=== PATIENT | male | born 1960 | race Caucasian/White ===

== ENCOUNTER 2016-03-30 16:08 | Emergency (ER) | payer SELFPAY ==
[2016-03-30] MEDS ORDERED: HYDROcodone/Acetaminophen 5/325 mg Tablet ONE (16:28)
[2016-03-30] MEDS ORDERED: AMOXicillin 250 MG CAP ONE (16:28)
--- NOTE | 2016-03-30 16:46 | ERRECORD ---
[facility] EMERGENCY RECORD HPI TOOTHACHE (16:24 WMEI) CHIEF COMPLAINT: Patient presents for evaluation of toothache. HISTORIAN: History provided by patient. LOCATION: Symptoms are localized. QUALITY: Pain is dull in nature, described as aching. TIME COURSE: Gradual onset of symptoms, 4, days priror to arrival. ASSOCIATED WITH: No associated chills, Associated with facial pain, No associated fever. EXACERBATED BY: Patient's condition exacerbated by chewing. RELIEVED BY: Patient's condition relieved by nothing. ROS (16:25 WMEI) CONSTITUTIONAL: Historian denies chills, denies fever. EYES: Historian denies eye pain, denies eye discharge. ENT: Historian denies otalgia, denies rhinorrhea. CARDIOVASCULAR: Historian denies chest pain, no radiation. RESPIRATORY: Historian denies cough, denies shortness of breath. GI: Historian denies abdominal pain, denies nausea, denies vomiting. MUSCULOSKELETAL: Historian denies injury, denies joint stiffness. SKIN: Historian denies skin changes, denies skin lesions. NEUROLOGIC: Historian denies confusion, denies lethargy. PSYCHIATRIC: Historian denies anxiety, denies depression. PAST MEDICAL HISTORY (16:16 LGIB) MEDICAL HISTORY: Past medical history includes history of hypertension, which has not been treated, Patient is noncompliant, Past medical history includes history of hyperlipidemia, high cholesterol, Past medical history includes neurological disease, transient ischemic attack, Past medical history includes cardiac history, myocardial infarction (2010) (2014). REVIEWED 03/30/16. MALE SURGICAL HISTORY: Patient has no surgical history. REVIEWED 03/30/16. PSYCHIATRIC HISTORY: No previous psychiatric history. REVIEWED 03/30/16. SOCIAL HISTORY: Lives at home, Patient currently uses tobacco, Patient smokes cigarettes, Patient smokes 1/2 PPD Patient has smoked for 30 years, Patient denies alcohol use, Patient denies drug use. REVIEWED 03/30/16. FAMILY HISTORY: Family istory is not significant, Family history includes coronary artery disease, sibling, Family history includes diabetes, mother. REVIEWED 03/30/16. KNOWN ALLERGIES No Known Drug Allergies CURRENT MEDICATIONS (16:15 LGIB) None &a-1R&a+25V*p+0X*d1536B*c202B*c15G*c2P*p-0X&a-25V&a+1R Name: Zion Forte : 1960 M56 MedRec: [id number] AcctNum: [id number] Prepared: Sat Mar 30, 2016 19:52 by Interface Page 1 of 3 pMD [facility] EMERGENCY RECORD VITAL SIGNS (16:24 LGIB) VITAL SIGNS: BP: 134/98, Pulse: 94, Resp: 18 (Non-Labored), Temp: 98.5 (Oral), Pain: 10, O2 sat: 94 on Room Air, Time: 03/30/2016 16:24. PHYSICAL EXAM (16:26 WMEI) CONSTITUTIONAL: Vital signs reviewed. HEAD: Head exam included findings of head atraumatic, normocephalic. EYES: Extraocular muscles intact, Conjunctiva normal, Sclera normal. ENT: Ear exam normal, Nose exam normal, Pharynx exam normal, teeth normal, multiple caries tender upper frontal. NECK: Neck exam included findings of normal range of motion, Trachea midline. RESPIRATORY CHEST: Breath sounds clear, Chest exam included findings of chest movement symmetrical. CARDIOVASCULAR: Cardiovascular exam included findings of heart rate regular rate and rhythm, Heart sounds normal. ABDOMEN MALE: Abdominal exam included findings of abdomen nontender, Liver normal, no distension. BACK: Back exam included findings of normal inspection, range of motion normal. UPPER EXTREMITY: Upper extremity exam included findings of inspection normal, Range of motion normal, Motor strength normal. LOWER EXTREMITY: Lower extremity exam included findings of inspection normal, Range of motion normal, Motor strength normal. NEURO: [place] coma scale 15, Neuro exam findings include patient oriented to person, place and time, Speech normal, Gait normal. SKIN: Skin exam included findings of skin warm, dry, and normal in color. LYMPHATIC: Lymphatic exam normal. PSYCHIATRIC: Psychiatric exam included findings of patient oriented to person place and time, Normal affect, Judgment normal, Insight normal. MEDICATION ADMINISTRATION SUMMARY Drug Name: Jayton, Dose Ordered: 5 mg, Route: Oral, Status: Given, Time: 16:30 03/30/2016, Drug Name: amoxicillin, Dose Ordered: 1000 mg, Route: Oral, Status: Given, Time: 16:30 03/30/2016, Detailed record available in Medication Service section. PROBLEM LIST No recorded problems DIAGNOSIS (16:28 WMEI) FINAL: PRIMARY: DENTAL CARIES UNSPECIFIED. PRESCRIPTION (16:24 WMEI) &a-1R&a+25V*p+0X*s8291W*c202B*c15G*c2P*p-0X&a-25V&a+1R Name: Zion Forte : 1960 M56 MedRec: [id number] AcctNum: [id number] Prepared: Sat Mar 30, 2016 19:52 by Interface Page 2 of 3 pMD [facility] EMERGENCY RECORD acetaminophen-codeine: TABLET : 300 mg-30 mg : ORAL : Quantity: 1 Unit: tab(s) Route: ORAL Schedule: every 4 hours prn Dispense: 20 Unit: tab(s) May substitute. Refills: No Refills . NOTES: No refills. Pen-Vee K: TABLET : 500 mg : ORAL : Quantity: 1 Unit: tab(s) Route: ORAL Schedule: every 6 hours Dispense: 40 Unit: tab(s) May substitute. Refills: No Refills . NOTES: ^s=No refills No refills. DISPOSITION PATIENT: Disposition Type: Discharge, Disposition: *Discharge Home. (16:28 WMEI) Patient left the department. (16:35 LGIB) Darnell: LGIB=TYSON Whiteside Lauren WMEI=DO Velarde William &a-1R&a+25V*p+0X*h4431H*c202B*c15G*c2P*p-0X&a-25V&a+1R Name: Zion Forte : 1960 M56 MedRec: [id number] AcctNum: [id number] Prepared: Sat Mar 30, 2016 19:52 by Interface Page 3 of 3 pMD MTDD
--- NOTE | 2016-03-30 16:49 | PICIS ---
[facility] EMERGENCY RECORD TRIAGE (16:14 LGIB) TRIAGE NOTES: PT WITH LIP SWELLINGFOR 2 DAYS. PATENT AIRWAY, NAD. (16:14 LGIB) PATIENT: NAME: Zion Forte, AGE: 56, GENDER: male, : Fri1960, TIME OF GREET: Sat Mar 30, 2016 16:08, PREFERRED LANGUAGE: Emirati, ETHNICITY: or , ECODE BILLING MAP: [facility], SSN: [id number], Zip Code: [address], KG WEIGHT: 117.93, PHONE: , , , PERSON ID: [id number], PAYMENT: [employer] Self Pay, PCP: DO CARTAGENA KRISTEL. (16:14 LGIB) COMPLAINT: LIP SWELLING. (16:14 LGIB) ADMISSION: URGENCY: 5 Fast Track, ADMISSION SOURCE: Home, TRANSPORT: CAR, BED: ER -03. (16:14 LGIB) PROVIDERS: TRIAGE NURSE: Sosa Whiteside RN. (16:14 LGIB) PREVIOUS VISIT ALLERGIES: No Known Drug Allergies. (16:14 LGIB) No Known Drug Allergies. (16:16 LGIB) KNOWN ALLERGIES No Known Drug Allergies CURRENT MEDICATIONS (16:15 LGIB) None VITAL SIGNS (16:24 LGIB) VITAL SIGNS: BP: 134/98, Pulse: 94, Resp: 18 (Non-Labored), Temp: 98.5 (Oral), Pain: 10, O2 sat: 94 on Room Air, Time: 03/30/2016 16:24. NURSING ASSESSMENT: SKIN (16:25 LGIB) CONSTITUTIONAL: Complex assessment performed, Patient arrives ambulatory, Gait steady, History obtained from patient, Patient appears comfortable, Patient cooperative, Patient alert, Oriented to person, place and time, Skin warm, Skin dry, Skin normal in color, Mucous membranes pink, Mucous membranes moist, Patient is well-groomed, Patient complains of LIP SWELLING. PAIN: tender pain, Onset of pain 03/28/2016, on a scale 0-10 patient rates pain as 10, Nothing has been tried to alleviate the pain. SKIN: Inspection findings include swelling, to FRONT LIP. SAFETY: Side rails up, Cart/Stretcher in lowest position, Family at bedside, Call light within reach, Hospital ID band on. NURSING PROCEDURE: DISCHARGE NOTE (16:35 LGIB) DISCHARGE: Patient discharged to home, ambulating without assistance, family driving, accompanied by //partner, Summary of Care printed/ provided, Patient requested and was provided an electronic copy of Discharge Instructions, Discharge instructions given to patient, Simple or moderate discharge teaching performed, Prescriptions given and instructions on side effects given, Above person(s) verbalized understanding of discharge instructions and &a-1R&a+25V*p+0X*x7267E*c202B*c15G*c2P*p-0X&a-25V&a+1R Name: Zion Forte : 1960 M56 MedRec: [id number] AcctNum: [id number] Prepared: Sat Mar 30, 2016 19:52 by Interface Page 1 of 5 D [facility] EMERGENCY RECORD follow-up care, Patient treated and evaluated by physician. BELONGINGS: Belongings and valuables with patient at time of discharge include:, Belongings remain with patient, Valuables remain with patient. MEDICATION ADMINISTRATION SUMMARY Drug Name: Perry, Dose Ordered: 5 mg, Route: Oral, Status: Given, Time: 16:30 03/30/2016, Drug Name: amoxicillin, Dose Ordered: 1000 mg, Route: Oral, Status: Given, Time: 16:30 03/30/2016, Detailed record available in Medication Service section. MEDICATION SERVICE (16:30 [facility]) amoxicillin: Order: amoxicillin (amoxicillin trihydrate) - Dose: 1000 mg : Oral Schedule: Now Ordered by: Zion Velarde DO Entered by: Zion Velarde DO Sat Mar 30, 2016 16:23 , Acknowledged by: Sosa Whiteside RN Sat Mar 30, 2016 16:25 Documented as given by: Sosa Whiteside RN Sat Mar 30, 2016 16:30 Patient, Medication, Dose, Route and Time verified prior to administration. Site: Medication administered P.O., Correct patient, time, route, dose and medication confirmed prior to administration, Patient advised of actions and side-effects prior to administration, Allergies confirmed and medications reviewed prior to administration, Patient in position of comfort, Side rails up, Cart in lowest position, Family at bedside. Perry: Order: Perry (hydrocodone bitartrate/acetaminophen) - Dose: 5 mg : Oral Schedule: Now Ordered by: Zion Velarde DO Entered by: Zion Velarde DO Sat Mar 30, 2016 16:23 , Acknowledged by: Sosa Whiteside RN Sat Mar 30, 2016 16:25 Documented as given by: Sosa Whiteside RN Sat Mar 30, 2016 16:30 Patient, Medication, Dose, Route and Time verified prior to administration. Site: Medication administered P.O., Correct patient, time, route, dose and medication confirmed prior to administration, Patient advised of actions and side-effects prior to administration, Allergies confirmed and medications reviewed prior to administration, Patient in position of comfort, Side rails up, Cart in lowest position, Family at bedside. HPI TOOTHACHE (16:24 WMEI) CHIEF COMPLAINT: Patient presents for evaluation of toothache. HISTORIAN: History provided by patient. LOCATION: Symptoms are localized. QUALITY: Pain is dull in nature, described as aching. &a-1R&a+25V*p+0X*b9044P*c202B*c15G*c2P*p-0X&a-25V&a+1R Name: Zion Forte : 1960 M56 MedRec: [id number] AcctNum: [id number] Prepared: Sat Mar 30, 2016 19:52 by Interface Page 2 of 5 pMD [facility] EMERGENCY RECORD TIME COURSE: Gradual onset of symptoms, 4, days priror to arrival. ASSOCIATED WITH: No associated chills, Associated with facial pain, No associated fever. EXACERBATED BY: Patient's condition exacerbated by chewing. RELIEVED BY: Patient's condition relieved by nothing. ROS (16:25 WMEI) CONSTITUTIONAL: Historian denies chills, denies fever. EYES: Historian denies eye pain, denies eye discharge. ENT: Historian denies otalgia, denies rhinorrhea. CARDIOVASCULAR: Historian denies chest pain, no radiation. RESPIRATORY: Historian denies cough, denies shortness of breath. GI: Historian denies abdominal pain, denies nausea, denies vomiting. MUSCULOSKELETAL: Historian denies injury, denies joint stiffness. SKIN: Historian denies skin changes, denies skin lesions. NEUROLOGIC: Historian denies confusion, denies lethargy. PSYCHIATRIC: Historian denies anxiety, denies depression. PAST MEDICAL HISTORY (16:16 LGIB) MEDICAL HISTORY: Past medical history includes history of hypertension, which has not been treated, Patient is noncompliant, Past medical history includes history of hyperlipidemia, high cholesterol, Past medical history includes neurological disease, transient ischemic attack, Past medical history includes cardiac history, myocardial infarction (2010) (2014). REVIEWED 03/30/16. MALE SURGICAL HISTORY: Patient has no surgical history. REVIEWED 03/30/16. PSYCHIATRIC HISTORY: No previous psychiatric history. REVIEWED 03/30/16. SOCIAL HISTORY: Lives at home, Patient currently uses tobacco, Patient smokes cigarettes, Patient smokes 1/2 PPD Patient has smoked for 30 years, Patient denies alcohol use, Patient denies drug use. REVIEWED 03/30/16. FAMILY HISTORY: Family istory is not significant, Family history includes coronary artery disease, sibling, Family history includes diabetes, mother. REVIEWED 03/30/16. PHYSICAL EXAM (16:26 WMEI) CONSTITUTIONAL: Vital signs reviewed. HEAD: Head exam included findings of head atraumatic, normocephalic. EYES: Extraocular muscles intact, Conjunctiva normal, Sclera normal. ENT: Ear exam normal, Nose exam normal, Pharynx exam normal, teeth normal, multiple caries tender upper frontal. NECK: Neck exam included findings of normal range of motion, Trachea midline. RESPIRATORY CHEST: Breath sounds clear, Chest exam included &a-1R&a+25V*p+0X*b0929H*c202B*c15G*c2P*p-0X&a-25V&a+1R Name: Zion Forte : 1960 M56 MedRec: [id number] AcctNum: [id number] Prepared: Sat Mar 30, 2016 19:52 by Interface Page 3 of 5 pMD [facility] EMERGENCY RECORD findings of chest movement symmetrical. CARDIOVASCULAR: Cardiovascular exam included findings of heart rate regular rate and rhythm, Heart sounds normal. ABDOMEN MALE: Abdominal exam included findings of abdomen nontender, Liver normal, no distension. BACK: Back exam included findings of normal inspection, range of motion normal. UPPER EXTREMITY: Upper extremity exam included findings of inspection normal, Range of motion normal, Motor strength normal. LOWER EXTREMITY: Lower extremity exam included findings of inspection normal, Range of motion normal, Motor strength normal. NEURO: [place] coma scale 15, Neuro exam findings include patient oriented to person, place and time, Speech normal, Gait normal. SKIN: Skin exam included findings of skin warm, dry, and normal in color. LYMPHATIC: Lymphatic exam normal. PSYCHIATRIC: Psychiatric exam included findings of patient oriented to person place and time, Normal affect, Judgment normal, Insight normal. EVENTS TRANSFER: Triage to Emergency Emergency Room -03. (Sat Mar 30, 2016 16:14 LGIB) Removed from Emergency Emergency Room -03. (16:35 LGIB) PROBLEM LIST No recorded problems DIAGNOSIS (16:28 WMEI) FINAL: PRIMARY: DENTAL CARIES UNSPECIFIED. DISPOSITION PATIENT: Disposition Type: Discharge, Disposition: *Discharge Home. (16:28 WMEI) Patient left the department. (16:35 LGIB) INSTRUCTION (16:29 WMEI) DISCHARGE: TOOTH PAIN. FOLLOWUP: DO CARTAGENA KRISTEL, [facility], [address] [place] [id number], [phone]. SPECIAL: Follow-up with your PCP/dentist. PRESCRIPTION (16:24 WMEI) acetaminophen-codeine: TABLET : 300 mg-30 mg : ORAL : Quantity: 1 Unit: tab(s) Route: ORAL Schedule: every 4 hours prn Dispense: 20 Unit: tab(s) May substitute. Refills: No Refills . NOTES: No refills. Pen-Vee K: TABLET : 500 mg : ORAL : Quantity: 1 Unit: tab(s) Route: ORAL Schedule: every 6 hours Dispense: 40 Unit: &a-1R&a+25V*p+0X*w1597N*c202B*c15G*c2P*p-0X&a-25V&a+1R Name: JannZion bejarano : 1960 M56 MedRec: [id number] AcctNum: [id number] Prepared: Sat Mar 30, 2016 19:52 by Interface Page 4 of 5 pMD [facility] EMERGENCY RECORD tab(s) May substitute. Refills: No Refills . NOTES: ^s=No refills No refills. IMAGING *DISCHARGE INSTRUCTIONS RECEIPT: Image captured from scanner. (16:35 LGIB) *SUPPLY CHARGE SHEET: Image captured from scanner. (16:36 LGIB) ADMIN (19:45 WMEI) DIGITAL SIGNATURE: DO Velarde William. Darnell: LGIB=TYSON Whiteside, Sosa WMEI=DO Velarde William &a-1R&a+25V*p+0X*p2054C*c202B*c15G*c2P*p-0X&a-25V&a+1R Name: Zion Forte : 1960 M56 MedRec: [id number] AcctNum: [id number] Prepared: Juve Mar 30, 2016 19:52 by Interface Page 5 of 5 pMD MTDD
== END 2016-03-30 16:35 | disposition home or self-care (01) ==
LOC: BURERS 16:08
DX: K02.9 Dental caries, unspecified (principal); I10 Essential (primary) hypertension; E78.5 Hyperlipidemia, unspecified; E78.00 Pure hypercholesterolemia, unspecified; F17.210 Nicotine dependence, cigarettes, uncomplicated
CPT/HCPCS: 99282

== ENCOUNTER 2016-07-16 18:07 | Emergency (ER) | payer SELFPAY ==
[2016-07-16] MEDS ORDERED: Ibuprofen 800 MG TAB ONE (18:26)
[2016-07-16] MEDS ORDERED: Azithromycin 250 MG TAB ONE (19:07)
[2016-07-16] MEDS ORDERED: Cephalexin 250 MG CAP ONE (19:12)
--- NOTE | 2016-07-16 22:26 | RAD ---
CHEST TWO VIEWS 07/16/16 Comparison is made with a 08/08/14 portable film from [facility]. The heart is normal in size. The trachea is midline. There is no major lobar infiltrate or effusion. One could argue for a very subtle increase in streaking in the right base medially compared to the prior study. The finding is not strong enough to guarantee an infiltrate here. If he does not improv e, a followup study to look at this area again in a few days could be worthwhile. The lungs are othe rwise clear. There are no acute bony changes. IMPRESSION: Equivocal prominence of some of the right basilar markings which may or may not be significant. See above. POS: HOME
== END 2016-07-16 19:16 | disposition home or self-care (01) ==
LOC: BURERS 18:07
DX: J18.9 Pneumonia, unspecified organism (principal); I10 Essential (primary) hypertension; E78.5 Hyperlipidemia, unspecified; E78.00 Pure hypercholesterolemia, unspecified; I25.2 Old myocardial infarction; F17.210 Nicotine dependence, cigarettes, uncomplicated; Z86.73 Personal history of transient ischemic attack (TIA), and cerebral infarction without residual deficits
CPT/HCPCS: 71020

== ENCOUNTER 2016-07-16 21:13 | Emergency (ER) | payer SELFPAY | END 2016-07-16 21:23 | disposition home or self-care (01) | LOC: BURERS 21:13 | DX: R50.9 Fever, unspecified (principal); I10 Essential (primary) hypertension; E78.5 Hyperlipidemia, unspecified; E78.00 Pure hypercholesterolemia, unspecified; F17.210 Nicotine dependence, cigarettes, uncomplicated | CPT/HCPCS: 99283 ==

== ENCOUNTER 2017-05-02 11:28 | Emergency (ER) | payer MEDICARE, MEDICAID | END 2017-05-02 12:00 | disposition home or self-care (01) | LOC: BURERS 11:28 | DX: K04.7 Periapical abscess without sinus (principal); K02.9 Dental caries, unspecified; I10 Essential (primary) hypertension; E78.5 Hyperlipidemia, unspecified; Z86.73 Personal history of transient ischemic attack (TIA), and cerebral infarction without residual deficits; I25.2 Old myocardial infarction; F17.210 Nicotine dependence, cigarettes, uncomplicated | CPT/HCPCS: 41800 ==

== ENCOUNTER 2017-06-04 18:29 | Emergency (ER) | payer MEDICARE, MEDICAID ==
[2017-06-04] MEDS ORDERED: Ketorolac Tromethamine 60 MG/2 ML VIAL ONE (18:47)
== END 2017-06-04 20:58 | disposition home or self-care (01) ==
LOC: BURERS 18:29
DX: T63.2X1A Toxic effect of venom of scorpion, accidental (unintentional), initial encounter (principal); I10 Essential (primary) hypertension; E78.5 Hyperlipidemia, unspecified; Z86.73 Personal history of transient ischemic attack (TIA), and cerebral infarction without residual deficits; I25.2 Old myocardial infarction; F17.210 Nicotine dependence, cigarettes, uncomplicated
CPT/HCPCS: 96372; J1885

== ENCOUNTER 2020-09-25 09:16 | Emergency (ER) | payer MEDICARE, MEDICAID ==
[2020-09-25] MEDS ORDERED: Nitroglycerin 0.4 MG TAB 1 EACH ONE ×3 (09:25→09:38)
[2020-09-25] MEDS ORDERED: Acetaminophen 500 MG TAB ONE (09:42)
[2020-09-25] MEDS ORDERED: Ondansetron PF 4 MG/2 ML Vial ONE (09:42)
[2020-09-25] MEDS ORDERED: Enoxaparin Sodium 100 MG/ML SYRINGE ONE (09:50)
[2020-09-25 09:51] LABS: ALT (SGPT) 33 U/L (8-55); AST (SGOT) 16 U/L (5-34); Albumin 4.1 g/dL (3.5-5.0); Alkaline Phosphatase 58 U/L (40-110); Anion Gap 15 mmol/L (10-20); BUN (Urea Nitrogen) 14 mg/dL (8.4-25.7); Bilirubin, Total 0.5 mg/dL (0.2-1.2); Calc. Creatinine Clearance 0 mL/min (70-130); Calcium 8.8 mg/dL (7.8-10.44); Carbon Dioxide 28 mmol/L (22-29); Chloride 101 mmol/L (98-107); Globulin 2.9 g/dL (2.4-3.5); Glucose 247 mg/dL (70-105); Lipase 14 U/L (8-78); Potassium 3.9 mmol/L (3.5-5.1); Sodium 140 mmol/L (136-145)
[2020-09-25 09:52] LABS: Eosinophils 1 % (0-10); Hemoglobin 16.9 g/dL (14.0-18.0); Lymphocytes 31 % (21-51); MDiff Complete? YES; Mean Corpuscular HGB CONC 33.1 g/dL (32.0-36.0); Mean Corpuscular Volume 96.4 fL (78.0-98.0); Monocytes 10 % (0-10); Neutrophil 58 % (42-75); Platelet Count 53 thou/uL (130-400); Platelet Morphology Comment PLT CLUMPS ARE PRESENT; Red Blood Cell (RBC) Count 5.29 mill/uL (4.70-6.10); White Blood Cell (WBC) Count 8.6 thou/uL (4.8-10.8)
[2020-09-25] MEDS ORDERED: Nitroglycerin 2% Ointment 1 INCH/1 GM Packet ONE (10:21)
[2020-09-25] MEDS ORDERED: Morphine 4 MG/ML VIAL ONE (10:21)
[2020-09-25 10:52] LABS: SARS-CoV-2 NAA Rapid Test Not Detected (NotDetected)
== END 2020-09-25 11:08 | disposition home or self-care (01) ==
LOC: BURERS 09:16
DX: R07.9 Chest pain, unspecified (principal); D69.6 Thrombocytopenia, unspecified; Z20.822 Contact with and (suspected) exposure to COVID-19; I10 Essential (primary) hypertension; E78.5 Hyperlipidemia, unspecified; I25.2 Old myocardial infarction
CPT/HCPCS: 0240U; 71045; 80053; 83690; 83880; 84484; 85025; 93005; 96372; 96374; 96375; J1650; J2270; J2405

== ENCOUNTER 2020-10-25 20:31 | Emergency (ER) | payer MEDICARE, MEDICAID ==
[2020-10-25] MEDS ORDERED: Metoclopramide HCl 10 MG/2 ML VIAL ONE (20:47)
[2020-10-25] MEDS ORDERED: diphenhydrAMINE 50 MG/ML VIAL ONE (20:47)
[2020-10-25 20:57] LABS: #Basophils 0.1 thou/uL (0.0-0.2); #Eosinphils 0.2 thou/uL (0.0-0.7); #Neutrophils 4.7 thou/uL (1.40-6.50); %Basophils 1.5 % (0.0-1.0); %Eosinophils 2.4 % (0.0-10.0); %Lymphocytes 32.7 % (21.0-51.0); %Monocytes 11.1 % (0.0-10.0); %Neutrophils 52.4 % (42.0-75.0); Hemoglobin 15.9 g/dL (14.0-18.0); Mean Corpuscular HGB CONC 32.8 g/dL (32.0-36.0); Mean Corpuscular Hemoglobin 31.8 pg (27.0-31.0); Mean Corpuscular Volume 96.7 fL (78.0-98.0); Mean Platelet Volume 9.6 fL (7.4-10.4); Platelet Count 182 thou/uL (130-400); RBC Distribution Width 12.7 % (11.5-14.5); Red Blood Cell (RBC) Count 5.01 mill/uL (4.70-6.10)
[2020-10-25 21:08] LABS: Prothrombin Time 13.4 sec (12.0-14.7)
[2020-10-25] MEDS ORDERED: Dexamethasone 10 MG/ML VIAL ONE (21:12)
[2020-10-25 21:14] LABS: ALT (SGPT) 28 U/L (8-55); AST (SGOT) 15 U/L (5-34); Albumin 4.1 g/dL (3.5-5.0); Alkaline Phosphatase 60 U/L (40-110); Anion Gap 14 mmol/L (10-20); BUN (Urea Nitrogen) 16 mg/dL (8.4-25.7); Bilirubin, Total 0.4 mg/dL (0.2-1.2); Calc. Creatinine Clearance 0 mL/min (70-130); Calcium 9.3 mg/dL (7.8-10.44); Carbon Dioxide 25 mmol/L (22-29); Chloride 107 mmol/L (98-107); Glucose 141 mg/dL (70-105); Potassium 3.9 mmol/L (3.5-5.1); Protein, Total 7.1 g/dL (6.0-8.3); Sodium 142 mmol/L (136-145)
== END 2020-10-25 21:48 | disposition home or self-care (01) ==
LOC: BURERS 20:31
DX: G43.909 Migraine, unspecified, not intractable, without status migrainosus (principal); I10 Essential (primary) hypertension; E78.5 Hyperlipidemia, unspecified; E78.00 Pure hypercholesterolemia, unspecified; I25.2 Old myocardial infarction; F17.210 Nicotine dependence, cigarettes, uncomplicated; Z86.73 Personal history of transient ischemic attack (TIA), and cerebral infarction without residual deficits
CPT/HCPCS: 70450; 80053; 85025; 85610; 96365; 96375; J1100; J1200; J2765

== ENCOUNTER 2020-11-02 | Emergency (ER) | payer MEDICARE, MEDICAID | END 2020-11-02 22:05 | disposition home or self-care (01) | DX: R07.81 Pleurodynia (principal); R94.31 Abnormal electrocardiogram [ECG] [EKG]; E78.5 Hyperlipidemia, unspecified; E78.00 Pure hypercholesterolemia, unspecified; I25.2 Old myocardial infarction; F17.210 Nicotine dependence, cigarettes, uncomplicated ==

== ENCOUNTER 2022-03-20 17:09 | Emergency (ER) | payer MEDICARE, MEDICAID | END 2022-03-20 17:41 | disposition home or self-care (01) | LOC: BURERS 17:09 | DX: S01.01XA Laceration without foreign body of scalp, initial encounter (principal); I25.2 Old myocardial infarction; I25.10 Atherosclerotic heart disease of native coronary artery without angina pectoris; I10 Essential (primary) hypertension; E78.00 Pure hypercholesterolemia, unspecified; F17.200 Nicotine dependence, unspecified, uncomplicated; W22.8XXA Striking against or struck by other objects, initial encounter; Z86.73 Personal history of transient ischemic attack (TIA), and cerebral infarction without residual deficits; Z79.899 Other long term (current) drug therapy | CPT/HCPCS: 99282 ==

== ENCOUNTER 2022-03-22 05:31 | Emergency (ER) | payer MEDICARE, MEDICAID ==
[2022-03-22] MEDS ORDERED: Acetaminophen 500 MG TAB ONE (05:58)
== END 2022-03-22 06:00 | disposition home or self-care (01) ==
LOC: BURERS 05:31
DX: K02.9 Dental caries, unspecified (principal); I25.10 Atherosclerotic heart disease of native coronary artery without angina pectoris; I10 Essential (primary) hypertension; E78.00 Pure hypercholesterolemia, unspecified; I25.2 Old myocardial infarction; F17.210 Nicotine dependence, cigarettes, uncomplicated; Z86.73 Personal history of transient ischemic attack (TIA), and cerebral infarction without residual deficits; Z79.899 Other long term (current) drug therapy
CPT/HCPCS: 99282

== ENCOUNTER 2025-01-25 16:20 | Emergency (ER) | payer MEDICARE, MEDICAID | END 2025-01-25 17:45 | disposition home or self-care (01) | LOC: BURERS 16:20 | DX: S90.851A Superficial foreign body, right foot, initial encounter (principal); I25.10 Atherosclerotic heart disease of native coronary artery without angina pectoris; I10 Essential (primary) hypertension; I25.2 Old myocardial infarction; F17.210 Nicotine dependence, cigarettes, uncomplicated; Z86.73 Personal history of transient ischemic attack (TIA), and cerebral infarction without residual deficits; X58.XXXA Exposure to other specified factors, initial encounter | CPT/HCPCS: 99283 ==